=== PATIENT | male | born 1950 | race Caucasian/White ===

== ENCOUNTER 2019-07-15 09:59 | Day surgery (SDC) | payer MEDICARE ==
[2019-07-15] MEDS ORDERED: LIDOCAINE 2% MDV (20MG/ML) 20ML VIAL IV ONE (10:00)
[2019-07-15] MEDS ORDERED: PROPOFOL 10 MG/ML VIAL IV ONE (10:00)
--- NOTE | 2019-07-16 07:40 | Operative Note ---
OPERATION: COLONOSCOPY with cold forceps and cold snare polypectomies. PREOPERATIVE DIAGNOSIS: Screening. POSTOPERATIVE DIAGNOSES: 1. Sigmoid diverticulosis. 2. Ascending colon polyp. 3. Sigmoid colon polyp. PREPARATION QUALITY: Excellent. ESTIMATED BLOOD LOSS: Minimum. SPECIMENS: Ascending polyp and sigmoid polyp. PROCEDURE: After informed consent was obtained from the patient, he was placed in the left lateral decubitus position in the endoscopy suite, sedated and monitored by the department of anesthesia. Digital rectal exam was unremarkable. A well-lubricated [id number] colonoscope was inserted into the rectum and advanced to the cecum. Preparation quality was excellent. The cecum, cecal bulb, ileocecal valve, and appendiceal orifice were unremarkable. The ascending colon revealed a 5 mm sessile polyp removed with a cold snare. The remainder of the ascending colon, transverse colon, and descending colon were unrevealing. The sigmoid colon demonstrated moderate diverticular changes. There was also a diminutive polyp removed with a cold forceps. The remainder of the sigmoid colon was unremarkable. The rectum was unremarkable in forward and J-turn views. The endoscope was straightened, the rectal ampulla deflated, and the endoscope was removed. RECOMMENDATIONS: I would suggest the patient follow a high-fiber diet and resume his medications. He will require repeat exam in 5 years pending tissue histology. As always, thank you for allowing me to participate in the healthcare of your patients. [id number]
== END 2019-07-15 11:20 | disposition home or self-care (01) ==
LOC: HOP 09:59
PROVIDERS: ATTEND Internal Medicine Gastroenterology
DX: Z12.11 Encounter for screening for malignant neoplasm of colon (principal); K63.5 Polyp of colon; K57.30 Diverticulosis of large intestine without perforation or abscess without bleeding; I10 Essential (primary) hypertension; E78.00 Pure hypercholesterolemia, unspecified